=== PATIENT | female | born 1995 | race Two or more races ===

== ENCOUNTER 2024-06-24 03:17 | Emergency (ER) | payer SELFPAY ==
[2024-06-24 03:47] VITALS: BP 125/80; PULSE 60; RESP 18; TEMP 36.7; O2SAT 98
[2024-06-24] MEDS: ONDANSETRON ODT 4 MG TABRAP PO (04:38)
[2024-06-24] MEDS: MG HYD/AL HYD/SIME (Maalox Reg) SUSP 30 ML UDC PO (04:39)
[2024-06-24] MEDS: FAMOTIDINE 20 MG TABLET 40 MG PO (04:39)
--- NOTE | 2024-06-24 05:25 | PD.EDRME ---
Rapid Medical Screening Exam [facility] Arrival date/time: 06/24/24 03:17 28F with history of GERD presents to ED with 1 hour of burning epigastric pain and N/V that goes to throat. Chief Complaint: Abdominal Pain Time Seen by Provider: 06/24/24 03:50 Vital signs: Vital Signs Temperature 98.1 F 06/24/24 03:47 Pulse Rate 60 06/24/24 03:47 Respiratory Rate 18 06/24/24 03:47 Blood Pressure 125/80 06/24/24 03:47 Pulse Oximetry (%) 98 06/24/24 03:47
--- NOTE | 2024-06-24 05:35 | PC.NURSE ---
NO ANSWER FOR CALLBACK TO MAIN ED
--- NOTE | 2024-06-24 05:48 | PC.NURSE ---
pt called back from lobby no answer
--- NOTE | 2024-06-24 06:09 | PC.NURSE ---
NO ANSWER FOR MAIN ED
== END 2024-06-24 06:11 | disposition left against medical advice (07) ==
PROVIDERS: Emergency Provider Emergency Medicine
DX: R10.13 Epigastric pain (principal); R11.2 Nausea with vomiting, unspecified; Z53.29 Procedure and treatment not carried out because of patient's decision for other reasons
CPT/HCPCS: 99281; Q0162; A9270